=== PATIENT | male | born 1960 | race Caucasian/White ===

== ENCOUNTER 2019-09-25 13:51 | Outpatient (CLI) | payer OTHER, SELFPAY ==
--- NOTE | 2019-09-25 14:33 | ECG_ITS ---
Measurements Intervals [place] Rate: 56 P: 63 LA: 151 QRS: -9 QRSD: 102 T: 46 QT: 409 QTc: 395 Interpretive Statements SINUS BRADYCARDIA VOLTAGE CRITERIA FOR LVH DELAYED PRECORDIAL R/S TRANSITION BASELINE ARTIFACT- I, II, III, AVR, AVL, AVF, V1-V6 BORDERLINE ECG Electronically Signed On 09-25-2019 15:34:58 CDT by Demarco Persaud D.O.
[2019-09-25 15:10] LABS: Basophils Absolute Auto 0.1 K/mm3 (0.0-0.1); Basophils Percent Auto 0.5 % (0.2-1.2); Eosinophils Absolute Auto 0.9 K/mm3 (0-0.3); Eosinophils Percent Auto 7.5 % (0-4.4); Hematocrit 49.3 % (42.0-52.0); Hemoglobin 16.7 g/dL (14.0-18.0); Immature Granulocyte Absolute 0.05 K/mm3 (0.00-0.031); Immature Granulocyte Percent A 0.4 % (0-0.5); Lymphocytes Absolute Auto 1.22 K/mm3 (0.9-3.2); Lymphocytes Percent Auto 10.2 % (18.3-44.2); Mean Corpuscular HGB Conc 33.9 g/dl (32-36); Mean Corpuscular Volume 85.6 fl (80-100); Mean Platelet Volume 10.7 fl (7.4-10.4); Monocytes Absolute Auto 0.6 K/mm3 (0.1-0.6); Monocytes Percent Auto 5.4 % (2.6-8.5); Neutrophils Absolute Auto 9.1 K/mm3 (1.3-6.7); Platelet Count Result 240 k/mm3 (150-375); Red Blood Count 5.76 M/mm3 (4.6-6.20); Red Cell Distribution Width 12.7 % (11.5-14.5); White Blood Count 11.9 K/mm3 (4.5-10.0)
[2019-09-25 15:18] LABS: Albumin Level 4.3 g/dL (3.5-5.1); Estimated Glomerular Filt Rate > 60; Glucose 95 mg/dL (75-110)
[2019-09-25 15:21] LABS: Urine Cotinine NEGATIVE
[2019-09-25 17:20] LABS: Hemoglobin A1C 5.4 % (<5.7)
== END 2019-09-25 13:52 | disposition home or self-care (01) ==
LOC: ANHSURGERY 13:54
PROVIDERS: PCP Internal Medicine; Visit Provider Orthopaedic Surgery
DX: Z01.818 Encounter for other preprocedural examination (principal); M16.11 Unilateral primary osteoarthritis, right hip; I10 Essential (primary) hypertension
CPT/HCPCS: 36415; 80307; 82040; 82565; 82947; 83036; 85025; 87081; 93005

== ENCOUNTER 2019-10-17 01:13 | Outpatient (CLI) | payer OTHER, SELFPAY ==
[2019-10-17 16:42] LABS: SARS-CoV-2 RNA PCR Negative
== END 2019-10-17 01:14 | disposition home or self-care (01) ==
LOC: ANHCOVIDDT 01:13
PROVIDERS: Visit Provider Orthopaedic Surgery
DX: Z01.812 Encounter for preprocedural laboratory examination (principal); Z20.828 Contact with and (suspected) exposure to other viral communicable diseases
CPT/HCPCS: 87635; C9803; U0003

== ENCOUNTER 2019-10-20 11:08 | Inpatient (IN) | payer OTHER, SELFPAY ==
[2019-09-25 14:13] VITALS: BP 150/86; PULSE 62; RESP 20; TEMP 37; O2SAT 96; BMI 29.8
[2019-10-20] VITALS (20 sets, daily range): BP systolic 123–153; BP diastolic 63–91; PULSE 55–78; RESP 16–22; TEMP 36.2–37; O2SAT 92–98
--- NOTE | ~2019-10-20 | XR_ITS ---
EXAMINATION: XR hip RT min 2V DATE: 10/20/2019 09:45 INDICATION: Right hip arthroplasty. Postop. TECHNIQUE: 2 views of right hip were obtained. COMPARISON: Right hip radiographs 10/12/2019 FINDINGS: There is a total right hip arthroplasty in near-anatomic alignment. No fracture. There is g as in the soft tissues, consistent with recent surgery. IMPRESSION: 1. Total right hip arthroplasty in near-anatomic alignment. Reviewed, dictated and finalized at location A.
[2019-10-20] MEDS: LACTATED RINGERS 1,000 ML 30 ML IV CONT ×2 (06:40→09:35)
--- NOTE | 2019-10-20 06:44 | WPDANESEPPF ---
Anes - Initial Pre Proc Eval Procedure: Operation Date: 10/20/19 07:30 Proposed Procedures p Right Total Hip Arthroplasty - Juancarlos Cobian MD Date/Time: 10/20/19 06:44 Surgeon: Juancarlos Cobian MD Pre Op Diagnosis: Right Hip OA Patient Data Age: 59 Gender: M Height: 1.91 m Weight: 108.3 kg Last Vital Signs Temp 37.0 C 09/25/19 14:13 Pulse 62 09/25/19 14:13 Resp 20 09/25/19 14:13 BP 150/86 H 09/25/19 14:13 Pulse Ox 96 09/25/19 14:13 Allergies Allergy/AdvReac Type Severity Reaction Status Date / Time Penicillins Allergy Unknown Unknown, Verified 09/25/19 14:10 A CHILD Home Medications Medication Instructions Recorded Confirmed Type celecoxib 200 mg capsule 200 mg PO DAILY 08/26/19 10/12/19 History diltiazem HCl 60 mg 60 mg PO BID 08/26/19 10/12/19 History capsule,extended release 12 hr fexofenadine 60 mg tablet 60 mg PO Q12H 08/26/19 10/12/19 History lisinopril 40 mg tablet 40 mg PO DAILY 08/26/19 10/12/19 History zafirlukast 10 mg tablet 20 mg PO Q12H 08/26/19 10/12/19 History albuterol sulfate 2 inh INHALATION BID 09/25/19 10/12/19 History fluticasone propionate 1 spray INTRANASAL DAILY 09/25/19 10/12/19 History Patient hx anesthesia problems: none Family hx anesthesia problems: none [facility] Past Medical History Medical History (Updated 10/20/19 @ 06:45 by Tay Buitrago DO) Asthma inhaler 1-2x a day - controlled Family history of cancer Family history of heart disease Family history of hypertension Hypertension Primary osteoarthritis of left knee Surgical History Surgical History History of arthroscopy of left knee (~2009) History of arthroscopy of right knee (~2005) History of arthroscopy of right knee (~1995) Primary osteoarthritis of right hip Social History Social History Smoking status: Never smoker Alcohol intake: current Anes - Eval Final PreProcedure Day of Procedure 10/20/19 06:44 Patient weight: overweight Heart: regular rate and rhythm Lungs: clear to auscultation and normal air movement Airway: Mallampati scale class II Neurological: alert and oriented Last oral intake: >/= 8 hours ASA classification: II Emergent: no Anesthetic plan: proceed Anesthesia type and monitoring: general ETT and standard monitoring Informed Consent: The patient's anesthetic plan and its attendant risks and benefits were discussed with the patient/family/POA. Questions were solicited and answers provided to the satisfaction of the patient/family/POA.
[2019-10-20] MEDS: TRANEXAMIC ACID 1,000MG/ISO100 1,000 MG/100 ML BAG 200 MG IVPB (06:50)
--- NOTE | 2019-10-20 07:23 | WPDHPUPDATE1 ---
History and Physical Update Update Date/Time: 10/20/19 07:23 History and Physical has been reviewed, including an updated exam of the patient. There are NO changes in the patient's condition. Risks, benefits, and alternatives have been discussed and questions answered. Patient agrees to proceed with procedure.
[2019-10-20] MEDS: CLINDAMYCIN 900 MG/NS 50 ML 900 MG/50 ML PIGGYBACK 50 MG IVPB (07:27)
[2019-10-20] MEDS: ceFAZolin SODIUM 1 GM VIAL 2 GM IV PUSH (07:49)
--- NOTE | 2019-10-20 09:57 | P.OP_ITS ---
Procedure Note - Detailed Date of procedure: 10/20/19 Pre-op diagnosis: Right Hip OA Post-op diagnosis: same Procedure performed: Total hip arthroplasty. Implants: The Accolade II hip stem, 127 degree size 5 , was utilized with excellent press-fit. The 52 mm ADM acetabular component was impacted with excellent press-fit stability. The +4, 28 mm Biolox ceramic femoral head was utilized. Anesthesia: GLMA Surgeon: uJancarlos Cobian MD Estimated blood loss (mL): 500 Drains: No Complications: None Condition: stable Disposition: PACU Findings: OPERATIVE DETAILS: The patient was given preoperative antibiotics. A general anesthetic was administered. The patient was carefully placed in the lateral decubitus position on the PEG board. The shoulders and hips were carefully positioned for component and leg length positioning reference. The hip was prepped and draped in the usual sterile fashion. A longitudinal incision was created over the posterior aspect of the greater trochanter. Caref ul dissection was brought down through the deep fascia with electrocautery. A minimally invasive optimized posterior approach to the hip was performed. The short external rotators and capsule were taken down in an L-shaped capsulotomy. The tissue was tagged for later repair using number 2 high strength suture. The femoral neck was measured and taken in situ. The femoral head was removed. The acetabulum was carefully exposed. The inferior capsule was released. The labrum was resected. The acetabulum was sequentially reamed to one over the intended cup size. The cup was impacted into position with excellent press-fit. Typical anatomic landmarks, including the bony contact points as well as the inferior transverse acetabular ligament were used to confirm cup positioning with preoperative templating. Attention was turned to the femur, which was carefully exposed. The hip was reamed and then broached sequentially. Excellent press-fit was obtained with the broach. The hip was trialed. Measurements were utilized, including the lesser trochanter as well as the center of the femoral head and the tip of the trochanter, and excellent assessment of the offset and leg lengths were confirmed. The real component was impacted into position. Trialing confirmed appropriate leg length and offset with soft tissue balancing as well apparent feel of the leg, both at the knee and the heel. Soft tissues were assessed using the the iliotibial band. Reduction of the posterior capsule and external rotators were also used as a secondary assessment. The hip was copiously irrigated with pulsatile lavage antibiotic solution periodically throughout the procedure. The real components were then assembled and reduced. The hip was stable throughout typical maneuvers, including extension, external rotation to 70 degrees, the position of sleep as well as flexion to 90 degrees with internal rotation past 45 degrees. The shake test confirmed stability without impingement. Osteophytes were removed as necessary. The short external rotators and capsule were repaired back to the posterior trochanter through drill holes. The deep fascia was repaired with running number 2 Quill suture, followed by 0 Stratafix suture and 2-0 Stratafix suture in the dermis. Steri- Strips were placed on the skin, followed by a sterile silver occlusive dressing. There were no complications. Meticulous hemostasis was maintained with the AquaMantys device. The patient was brought to the recovery room in stable condition. There were no complications.
--- NOTE | 2019-10-20 10:33 | SUR.PHASEI ---
1030 SPOKE WITH SPOUSE LILIANA PER PHONE- UPDATE GIVEN.
--- NOTE | 2019-10-20 11:25 | PC.NURSE ---
This patient, Bennett Mcginnis, was admitted to Medical Room 247-. Patient/family oriented to hospital policies and general routines including ID bracelet, bed and alarms, visiting hours, pain management, procedures, bathroom and other care routines, personal items, smoking policy, room service/diet, and visiting hours. Valuables list has been completed. Information on how to activate the Rapid Response Team has been discussed. Patient/Family are encouraged to report perceived risks to care and to ask questions if they do not understand what they are told or what they should do.
[2019-10-20] MEDS: SODIUM CHLORIDE 0.9% IV 1,000 ML 125 ML IV CONT (11:41)
[2019-10-20 12:47] LABS: Hematocrit 43.3 % (42.0-52.0); Hemoglobin 14.8 g/dL (14.0-18.0)
[2019-10-20] MEDS: ONDANSETRON INJ 4 MG/2 ML VIAL IV PUSH (13:21)
[2019-10-20] MEDS: ASPIRIN 81 MG ENTERIC TABLET PO (16:28)
[2019-10-20] MEDS: DOCUSATE SODIUM 100 MG CAPSULE PO (16:28)
[2019-10-20] MEDS: FLUTICASONE PROPIONATE 0.05% NA SPR 16 GM BTL (*BKC) 1 SPRAY NASAL (16:28)
[2019-10-20] MEDS: ALBUTEROL SULFATE (*SP) AEROSOL 1 PUFF 2 PUFF INHALATION (20:52)
[2019-10-21 03:35] VITALS: BP 151/73; PULSE 64; RESP 18; TEMP 37.1; O2SAT 96
[2019-10-21 05:40] LABS: Basophils Percent Auto 0.1 % (0.2-1.2); Hematocrit 39.5 % (42.0-52.0); Hemoglobin 13.4 g/dL (14.0-18.0); Immature Granulocyte Absolute 0.14 K/mm3 (0.00-0.031); Immature Granulocyte Percent A 0.8 % (0-0.5); Lymphocytes Absolute Auto 0.54 K/mm3 (0.9-3.2); Mean Corpuscular HGB Conc 33.9 g/dl (32-36); Mean Corpuscular Hemoglobin 29.1 pg (26-34); Mean Corpuscular Volume 85.9 fl (80-100); Mean Platelet Volume 10.5 fl (7.4-10.4); Monocytes Absolute Auto 1.1 K/mm3 (0.1-0.6); Monocytes Percent Auto 6.3 % (2.6-8.5); Neutrophils Percent Auto 89.8 % (45.5-73.1); Platelet Count Result 196 k/mm3 (150-375); White Blood Count 17.8 K/mm3 (4.5-10.0)
[2019-10-21 05:52] LABS: Blood Urea Nitrogen 23 mg/dL (9-20); Calcium 8.6 mg/dL (8.4-10.2); Carbon Dioxide 26 mmol/L (22-30); Chloride 107 mmol/L (98-107); Estimated CRCL calculation 102 ml/min; Estimated Glomerular Filt Rate > 60; Glucose 126 mg/dL (75-110); Sodium 136 mmol/L (137-145)
[2019-10-21] MEDS: ZAFIRLUKAST 20 MG TABLET PO (06:40)
[2019-10-21] MEDS: ALBUTEROL SULFATE (*SP) AEROSOL 1 PUFF 2 PUFF INHALATION (08:15)
[2019-10-21 08:16] VITALS: O2SAT 95
[2019-10-21] MEDS: CELECOXIB 200 MG CAPSULE PO (08:25)
[2019-10-21] MEDS: ASPIRIN 81 MG ENTERIC TABLET PO (08:25)
[2019-10-21] MEDS: LORATADINE 10 MG TABLET PO (08:25)
[2019-10-21] MEDS: lisinopriL 20 MG TABLET 40 MG PO (08:25)
[2019-10-21] MEDS: DOCUSATE SODIUM 100 MG CAPSULE PO (08:25)
[2019-10-21] MEDS: FLUTICASONE PROPIONATE 0.05% NA SPR 16 GM BTL (*BKC) 1 SPRAY NASAL (08:25)
--- NOTE | 2019-10-21 09:01 | WPDANESPN ---
Anes - Prog Note Post-Op Date/Time: 10/21/19 09:01 Cardiovascular status: normal Respiratory status: normal Airway patency: baseline Mental status: baseline Post-Op hydration status: normal Vital Signs: Last Vital Signs Temp 37.1 C 10/21/19 03:35 Pulse 64 10/21/19 03:35 Resp 18 10/21/19 03:35 BP 151/73 H 10/21/19 03:35 Pulse Ox 95 10/21/19 08:16 I/O: Intake & Output 10/20/19 10/21/19 10/21/19 23:59 07:59 15:59 Intake Total 1301 400 240 Output Total 625 400 Balance 676 0 240 Laboratory Tests 10/21/19 05:15 10/21/19 05:15 10/20/19 10/20/19 10/21/19 06:29 12:19 05:15 WBC 17.8 H RBC 4.60 Hgb 14.8 13.4 L Hct 43.3 39.5 L MCV 85.9 MCH 29.1 MCHC 33.9 RDW 13.0 Plt Count 196 MPV 10.5 H Immature Gran % (Auto) 0.8 H Neut % (Auto) 89.8 H Lymph % (Auto) 3.0 L [place] % (Auto) 6.3 Eos % (Auto) 0.0 Baso % (Auto) 0.1 L Lymph # (Auto) 0.54 L [place] # (Auto) 1.1 H Eos # (Auto) 0.0 Baso # (Auto) 0.0 Abs Immat Gran (auto) 0.14 H Absolute Neuts (auto) 16.0 H Absolute Nucleated RBC 0.0 Nucleated RBC % 0.0 Sodium Potassium Chloride Carbon Dioxide BUN Creatinine Estim Creat Clear Calc Estimated GFR Glucose Calcium Blood Type A Negative Antibody Screen Negative 10/21/19 05:15 WBC RBC Hgb Hct MCV MCH MCHC RDW Plt Count MPV Immature Gran % (Auto) Neut % (Auto) Lymph % (Auto) [place] % (Auto) Eos % (Auto) Baso % (Auto) Lymph # (Auto) [place] # (Auto) Eos # (Auto) Baso # (Auto) Abs Immat Gran (auto) Absolute Neuts (auto) Absolute Nucleated RBC Nucleated RBC % Sodium 136 L Potassium 4.0 Chloride 107 Carbon Dioxide 26 BUN 23 H Creatinine 0.80 Estim Creat Clear Calc 102 Estimated GFR > 60 Glucose 126 H Calcium 8.6 Blood Type Antibody Screen Post-procedural complaints: none Patient Feedback: Patient satisfied with anesthetic care.
[2019-10-21 10:00] VITALS: BP 132/69; PULSE 68; RESP 18; TEMP 36.6; O2SAT 95
[2019-10-21 11:35] VITALS: BP 126/73; PULSE 60; RESP 18; TEMP 36.4; O2SAT 98
--- NOTE | 2019-11-05 16:56 | P.DS_ITS ---
DS: Admitting Diagnosis Admitting Diagnosis Admitting Diagnosis: Unilateral primary osteoarthritis, right hip DS: Discharge Diagnosis Discharge Diagnosis (1) Status post total hip replacement, right: Code(s): Z96.641 - Presence of right artificial hip joint Status: Acute DS: Summary Hospital Course Reason for hospitalization: Total hip arthroplasty. Hospital Course: Tolerated surgery well. Progressed appropriately with therapy. Status at Discharge Functional status at discharge: uses cane/walker Time Spent with Patient Time attestation: Total time spent providing and/or coordinating discharge services: Exam Const: General: no acute distress Resp: Effort & Inspection: normal respiratory effort Skin: Other: Wound healing well. Mepilex dressing intact. No hematoma or drainage. Neuro: Motor exam (neuro): 5/5 motor strength present throughout Sensory Exam: normal sensation Psych: Mental Status: mental status grossly normal Speech and movement: Normal speech and movement present Discharge Plan Discharge Attending physician on discharge: Juancarlos Cobian Consulting providers: Wade Caceres V. Discharging Clinician: Juancarlos Cobian Patient Disposition: Home, Self-Care Activity: may shower Diet: as tolerated Discharge Instructions: See instruction sheet. Patient Instructions: Antibiotic Form, Aspirin (By mouth), Pain Management (DC), Precautions after Total Joint Replacement Surgery (DC), Fall Prevention (DC), Total Hip Replacement (DC) Follow-up/Referrals: Juancarlos Cobian MD [Physician] - Discharge Medications: New aspirin 81 mg Tablet,Delayed Release (Dr/Ec) 81 mg PO BID 14 Days Qty: 28 RF: 0 oxycodone-acetaminophen 5-325 mg tablet 1 - 2 tablet PO Q4-6H MDD 6 tablets PRN (Reason: pain) Qty: 30 RF: 0 Continued diltiazem HCl 60 mg capsule,extended release 12 hr 60 mg PO BID RF: 0 fexofenadine [[facility]cedes Allergy] 60 mg tablet 60 mg PO Q12H RF: 0 lisinopril 40 mg tablet 40 mg PO DAILY RF: 0 zafirlukast 10 mg tablet 20 mg PO Q12H RF: 0 celecoxib [Celebrex] 200 mg capsule 200 mg PO DAILY RF: 0 fluticasone propionate 50 mcg/actuation [place],Suspension 1 spray INTRANASAL DAILY RF: 0 albuterol sulfate 90 mcg/actuation Aerosol Powdr Breath Activated 2 inh INHALATION BID RF: 0 Date of admission: 10/20/19 11:08 Primary Care Provider: ALFJOSIANE Admitting Provider: Juancarlos Cobian Discharge Date/Time: 10/21/19 14:49 Attending physician on admission: Juancarlos Cobian
== END 2019-10-21 14:49 | disposition home or self-care (01) | DRG 470 ==
LOC: ANH2MED 13:08 → ANHSURGERY 10-23 15:45
PROVIDERS: Admitting Provider Orthopaedic Surgery; PCP Internal Medicine; Visit Provider Orthopaedic Surgery
PROC: 0SR904A Replacement of Right Hip Joint with Ceramic on Polyethylene Synthetic Substitute, Uncemented, Open Approach (ICD-10-PCS; CPT 27130; principal; 2019-10-20 07:30)
DX: M16.11 Unilateral primary osteoarthritis, right hip (principal); J45.909 Unspecified asthma, uncomplicated; I10 Essential (primary) hypertension; M17.12 Unilateral primary osteoarthritis, left knee
CPT/HCPCS: 36415; 73502; 80048; 85014; 85018; 85025; 86850; 86900; 86901; 94640; 97110; 97116; 97161; 97165; 97530; A9270; C1776; J0131; J0171; J0330; J0690; J1100; J1170; J1885; J2250; J2270; J2405; J2704; J2795; J3010; J7030; J7120

== ENCOUNTER 2020-07-11 14:19 | Outpatient (CLI) | payer OTHER, SELFPAY ==
--- NOTE | 2020-07-11 15:19 | ECG_ITS ---
Measurements Intervals [place] Rate: 58 P: 64 AR: 155 QRS: -1 QRSD: 104 T: 59 QT: 448 QTc: 444 Interpretive Statements SINUS BRADYCARDIA VENTRICULAR PREMATURE COMPLEXES INCOMPLETE RIGHT BUNDLE BRANCH BLOCK MINIMAL Q WAVES- HIGH LATERAL LEADS BORDERLINE T WAVE ABNORMALITY- ANTEROLATERAL LEADS BASELINE ARTIFACT- II, III, AVF, V4-V6 BORDERLINE ECG Electronically Signed On 07-11-2020 16:27:48 TAPE WEAVER by Demarco Persaud D.O.
[2020-07-11 15:21] LABS: Hematocrit 46.7 % (42.0-52.0); Hemoglobin 16.2 g/dL (14.0-18.0)
[2020-07-11 15:47] LABS: Estimated Glomerular Filt Rate > 60; Glucose 82 mg/dL (75-110)
[2020-07-11 15:57] LABS: Hemoglobin A1C 5.1 % (<5.7)
[2020-07-11 16:23] LABS: Urine Cotinine NEGATIVE
== END 2020-07-11 14:20 | disposition home or self-care (01) ==
PROVIDERS: PCP Internal Medicine; Visit Provider Orthopaedic Surgery
DX: Z01.818 Encounter for other preprocedural examination (principal); M17.12 Unilateral primary osteoarthritis, left knee; I10 Essential (primary) hypertension; J45.909 Unspecified asthma, uncomplicated
CPT/HCPCS: 80307; 82040; 82565; 82947; 83036; 85014; 85018; 93005

== ENCOUNTER 2020-08-01 09:22 | Outpatient (CLI) | payer OTHER, SELFPAY ==
[2020-08-01 10:14] LABS: Basophils Percent Auto 0.5 % (0.2-1.2); Eosinophils Absolute Auto 0.4 K/mm3 (0-0.3); Hematocrit 47.6 % (42.0-52.0); Hemoglobin 16.4 g/dL (14.0-18.0); Immature Granulocyte Absolute 0.03 K/mm3 (0.00-0.031); Immature Granulocyte Percent A 0.5 % (0-0.5); Lymphocytes Absolute Auto 0.93 K/mm3 (0.9-3.2); Lymphocytes Percent Auto 16.3 % (18.3-44.2); Mean Corpuscular HGB Conc 34.5 g/dl (32-36); Mean Corpuscular Hemoglobin 29.9 pg (26-34); Mean Corpuscular Volume 86.9 fl (80-100); Mean Platelet Volume 9.9 fl (7.4-10.4); Monocytes Absolute Auto 0.4 K/mm3 (0.1-0.6); Neutrophils Absolute Auto 3.9 K/mm3 (1.3-6.7); Neutrophils Percent Auto 68.7 % (45.5-73.1); Platelet Count Result 198 k/mm3 (150-375); Red Blood Count 5.48 M/mm3 (4.6-6.20); Red Cell Distribution Width 12.5 % (11.5-14.5); White Blood Count 5.7 K/mm3 (4.5-10.0)
== END 2020-08-01 09:23 | disposition home or self-care (01) ==
PROVIDERS: PCP Internal Medicine; Visit Provider Orthopaedic Surgery
DX: Z01.818 Encounter for other preprocedural examination (principal); M17.12 Unilateral primary osteoarthritis, left knee
CPT/HCPCS: 36415; 85025; 87081

== ENCOUNTER → 2020-08-13 00:47 | Outpatient (CLI) | payer OTHER, SELFPAY ==
[2020-08-13 18:53] LABS: SARS-CoV-2 RNA PCR Negative
== END ==
PROVIDERS: PCP Internal Medicine; Visit Provider Orthopaedic Surgery
DX: Z01.812 Encounter for preprocedural laboratory examination (principal); Z20.822 Contact with and (suspected) exposure to COVID-19
CPT/HCPCS: C9803; U0003; U0005

== ENCOUNTER 2020-08-16 01:03 | Day surgery (SDC) | payer OTHER, SELFPAY ==
[2020-08-01 09:35] VITALS: BMI 29.3
[2020-08-01 10:06] VITALS: BP 149/85; PULSE 52; RESP 16; TEMP 37.1; O2SAT 98
[2020-08-16] VITALS (13 sets, daily range): BP systolic 101–135; BP diastolic 65–83; PULSE 45–71; RESP 12–18; TEMP 36.3–37.2; O2SAT 94–99
--- NOTE | ~2020-08-16 | XR_ITS ---
EXAMINATION: XR knee LT 2V EXAM DATE: 08/16/2020 12:59 INDICATION: Left knee total arthroplasty. TECHNIQUE: Portable frontal, crosstable lateral projections left knee obtained immediately following arthroplasty. Procedure performed by Juancarlos Cobian MD. FINDINGS: Patient is status post total knee arthroplasty. The orthopedic hardware is in expected po sition. There is small amount of subcutaneous gas, gas and fluid within the knee joint space. Overl aylin soft tissue swelling. Correlate with procedure note. Suprapatellar enthesopathy. IMPRESSION: Status post total left knee arthroplasty. Reviewed, dictated and finalized at location A.
[2020-08-16] MEDS: LACTATED RINGERS 1,000 ML 30 ML IV CONT ×2 (09:19→12:42)
[2020-08-16] MEDS: ACETAMINOPHEN 500 MG TABLET 1000 MG PO (09:25)
[2020-08-16] MEDS: TRANEXAMIC ACID 1,000MG/ISO100 1,000 MG/100 ML BAG 200 MG IVPB (09:26)
--- NOTE | 2020-08-16 09:27 | WPDHPUPDATE1 ---
History and Physical Update Update Date/Time: 08/16/20 09:27 History and Physical has been reviewed, including an updated exam of the patient. There are NO changes in the patient's condition. Risks, benefits, and alternatives have been discussed and questions answered. Patient agrees to proceed with procedure.
--- NOTE | 2020-08-16 09:28 | WPDHPUPDATE1 ---
History and Physical Update Update Date/Time: 08/16/20 09:28 History and Physical has been reviewed, including an updated exam of the patient. There are NO changes in the patient's condition. Risks, benefits, and alternatives have been discussed and questions answered. Patient agrees to proceed with procedure.
--- NOTE | 2020-08-16 09:47 | WPDANESEPPF ---
Anes - Initial Pre Proc Eval Procedure: Operation Date: 08/16/20 10:30 Proposed Procedures p Left Total Knee Arthroplasty - Juancarlos Cobian MD Date/Time: 08/16/20 09:47 Surgeon: Juancarlos Cobian MD Pre Op Diagnosis: primary OA left knee Patient Data Age: 60 Gender: M Height: 6 ft 4 in Weight: 108 kg Last Vital Signs Temp 37.2 C 08/16/20 09:32 Pulse 57 L 08/16/20 09:32 Resp 16 08/16/20 09:32 BP 130/75 08/16/20 09:32 Pulse Ox 98 08/16/20 09:32 Allergies Allergy/AdvReac Type Severity Reaction Status Date / Time Penicillins Allergy Unknown Unknown, Verified 08/16/20 08:57 A CHILD Home Medications Medication Instructions Recorded Confirmed Type celecoxib 200 mg capsule 200 mg PO BID 08/26/19 08/16/20 History fexofenadine 60 mg tablet 180 mg PO DAILY 08/26/19 08/16/20 History lisinopril 40 mg tablet 40 mg PO DAILY 08/26/19 08/16/20 History zafirlukast 10 mg tablet 20 mg PO Q12H 08/26/19 08/16/20 History albuterol sulfate 2 inh INHALATION PRN PRN 09/25/19 08/16/20 History fluticasone propionate 1 spray INTRANASAL DAILY 09/25/19 08/16/20 History diltiazem HCl 240 mg PO BID 08/01/20 08/16/20 History fluticasone propionate [Flovent 2 inh INHALATION BID 08/01/20 08/16/20 History HFA] Patient hx anesthesia problems: none Family hx anesthesia problems: none PMFSH Past Medical History Medical History Asthma inhaler 1-2x a day - controlled Family history of cancer Family history of heart disease Family history of hypertension Hypertension Primary osteoarthritis of left knee Surgical History Surgical History History of arthroscopy of left knee (~2009) History of arthroscopy of right knee (~2005) History of arthroscopy of right knee (~1995) Primary osteoarthritis of right hip Status post total hip replacement, right Family History Family History Other Family history of cardiovascular disease Hypertension Social History Social History Smoking status: Never smoker Additional smoking assessment comments: DENIES ANY FORM OF TOBACCO USE Alcohol intake: current Drinks per week: 1 Substance use: never Substance use type: does not use Living arrangements: with family Gender identity (if verbalized by the patient): Male Spiritual care concerns: No Anes - Eval Final PreProcedure Day of Procedure 08/16/20 09:47 Patient weight: overweight Heart: regular rate and rhythm Lungs: clear to auscultation Airway: Mallampati scale class II Neurological: alert and oriented Last oral intake: >/= 8 hours ASA classification: II Emergent: no Anesthetic plan: proceed Anesthesia type and monitoring: general LMA and standard monitoring Informed Consent: The patient's anesthetic plan and its attendant risks and benefits were discussed with the patient/family/POA. Questions were solicited and answers provided to the satisfaction of the patient/family/POA.
--- NOTE | 2020-08-16 10:01 | WPDANESPNB ---
Anes - Peripheral Nerve Block Date/Time: 08/16/20 10:01 I have discussed with the patient/family/POA the placement of a peripheral nerve block for post-operative pain management, including associated risks, benefits, complications, and side effects. Alternative methods of post-operative analgesia were detailed. Questions were solicited and answers provided to the satisfaction of the patient/family/POA. Time-Out: A pre-procedural Time-Out was completed immediately before starting the procedure and confirmed: Patient Identification, Site, Procedure, Patient Position and the Availability of Requisite Equipment. Clinical Indications: Acute post-operative pain management requested by the operative surgeon. Nerve Block Insertion Note Anes-nerve block: adductor canal left Patient position: supine Skin prep: chlorhexidine Needle: 22 gauge, stimulating, insulated echogenic needle. Needle length: 80 mm Technique: ultrasound Injectate: bupivacaine 0.5% with epi 5 mcg/ml (30ml no epi) Observations: tolerated well Complications: none Procedure start time:: 947 Procedure end time:: 954
[2020-08-16] MEDS: ceFAZolin 2 GM/D5W 50 ML 2 GM/50 ML BAG IVPB (10:03)
[2020-08-16] MEDS: fentaNYL CITRATE INJ (*CRX) 100 MCG/2 ML VIAL 25 MCG IV PUSH ×8 (13:12→14:00)
--- NOTE | 2020-08-16 13:27 | PM.PROC ---
Procedure Note - Detailed Date of procedure: 08/16/20 Pre-op diagnosis: primary OA left knee Post-op diagnosis: same Procedure performed: Total knee arthroplasty, left Description of procedure: for bone quality was excellent. He had a significant varus thrust which required a large medial release. Flexion gap was a bit tight and the PS knee was selected. Gap balance was then ideal. Implants: [place] [employer] size 6 press-fit femur, size 7 Tritanium press fit tibia, 13mm PS X3, polyethylene insert, 38 mm asymmetric Tritanium metal backed patellar component. Anesthesia: GETA and regional (subsartorial nerve block) Surgeon: Juancarlos Cobian MD Ingot Header: Coty Hsieh PA-C Estimated blood loss (mL): 250 Drains: No Complications: None Condition: stable Disposition: PACU Findings: Physician junior administrative assistant, Coty Hsieh PA-C, required for surgery; including patient positioning, draping, tissue retraction, maintaining instrument position, wound closure, and dressing placement. OPERATIVE DETAILS: The patient was given a nerve block preoperatively, and then brought to the operating room. A general anesthetic was administered. The leg was prepped and draped in the usual sterile fashion. The limb was elevated and the tourniquet inflated to 300 mmHg during initial exposure. A longitudinal incision was created along the medial border of the patella and patellar tendon, and trivector approach to the knee was performed. A moderate medial release was taken. The knee was then flexed. The osteophytes were carefully removed. The intramedullary guide was placed in the femoral canal. The distal femoral resection was then taken with the oscillating saw. The collateral ligaments were carefully protected. The tibia was carefully exposed. The jig was applied, and the proximal tibia was resected at 3 degrees according to preoperative plan. The knee was balanced in extension. Appropriate releases were taken where needed. The anterior cruciate ligament and meniscal remnants were removed. The patella was measured. Patellar resection was carried out with the oscillating saw. The lug holes drilled. The femur was sized and rotation assessed using a combination of gap balancing, posterior referencing, and the AP axis. The 4 in 1 cutting block was used to finish the femoral cuts after equal gaps were assured. The box cut was taken and PCL excised. The lug holes were drilled. The osteophytes were carefully removed from the back of the knee. The knee was copiously irrigated periodically throughout the procedure. The meniscal remnants were removed. The spacer block was used to confirm equal flexion and extension gaps. Further releases were performed as needed. The tibia was sized and broached. The bony surfaces were prepared for cementing with pulsatile lavage. The real tibial component was impacted into position followed by press fitting the femoral component. The patella component was press-fit. Patellar tracking was carefully assessed. No additional releases were required. The wound was closed with #1 Vycril suture, #2 Quill suture, 0-Quill suture, and 2-0 Quill suture followed by Steri-Strips. A sterile bulky dressing was applied. Meticulous hemostasis was maintained throughout the procedure. The Baboomtis device was utilized. There were no complications. The patient was extubated and brought to the recovery room in stable condition after the application of sterile dressing with Primitivo bandage.
--- NOTE | 2020-08-16 14:20 | ADMGEN ---
This patient, Bennett Mcginnis, was admitted to Medical Room 250-01. Patient/family oriented to hospital policies and general routines including ID bracelet, bed and alarms, visiting hours, pain management, procedures, bathroom and other care routines, personal items, smoking policy, room service/diet, and visiting hours. Information on how to activate the Rapid Response Team has been discussed. Patient/Family are encouraged to report perceived risks to care and to ask questions if they do not understand what they are told or what they should do.
[2020-08-16] MEDS: SODIUM CHLORIDE 0.9% IV 1,000 ML 125 ML IV CONT (14:36)
[2020-08-16] MEDS: oxyCODONE HCL (*CRX) 5 MG TAB IR PO ×2 (14:37→21:59)
[2020-08-16] MEDS: ONDANSETRON INJ 4 MG/2 ML VIAL IV PUSH (15:19)
[2020-08-16] MEDS: DOCUSATE SODIUM 100 MG CAPSULE PO (16:19)
[2020-08-16] MEDS: CELECOXIB 200 MG CAPSULE PO (16:19)
[2020-08-16] MEDS: ASPIRIN 81 MG ENTERIC TABLET PO (16:19)
[2020-08-16] MEDS: FLUTICASONE PROP 220 MCG (*SP) 12 GM INHALER 2 PUFF INHALATION (21:54)
[2020-08-16] MEDS: SENNOSIDES 8.6 MG TABLET 17.2 MG PO (21:55)
[2020-08-16] MEDS: ZAFIRLUKAST 20 MG TABLET PO (21:55)
[2020-08-17] VITALS: BP 140/77; PULSE 65; RESP 16; TEMP 36.6; O2SAT 95
[2020-08-17] MEDS: oxyCODONE HCL (*CRX) 5 MG TAB IR PO ×2 (01:39→08:33)
[2020-08-17 04:00] VITALS: BP 125/69; PULSE 66; RESP 16; TEMP 36.7; O2SAT 95
[2020-08-17 06:04] LABS: Basophils Percent Auto 0.2 % (0.2-1.2); Hematocrit 41.9 % (42.0-52.0); Hemoglobin 14.2 g/dL (14.0-18.0); Immature Granulocyte Absolute 0.08 K/mm3 (0.00-0.031); Immature Granulocyte Percent A 0.4 % (0-0.5); Lymphocytes Absolute Auto 0.57 K/mm3 (0.9-3.2); Lymphocytes Percent Auto 3.2 % (18.3-44.2); Mean Corpuscular HGB Conc 33.9 g/dl (32-36); Mean Corpuscular Hemoglobin 30.3 pg (26-34); Mean Corpuscular Volume 89.3 fl (80-100); Mean Platelet Volume 10.6 fl (7.4-10.4); Monocytes Percent Auto 5.4 % (2.6-8.5); Neutrophils Absolute Auto 16.2 K/mm3 (1.3-6.7); Neutrophils Percent Auto 90.8 % (45.5-73.1); Platelet Count Result 211 k/mm3 (150-375); Red Blood Count 4.69 M/mm3 (4.6-6.20); Red Cell Distribution Width 12.9 % (11.5-14.5); White Blood Count 17.8 K/mm3 (4.5-10.0)
[2020-08-17 06:11] LABS: Anion Gap 4 mmol/L (8-16); Blood Urea Nitrogen 27 mg/dL (9-20); Calcium 8.5 mg/dL (8.4-10.2); Carbon Dioxide 26 mmol/L (22-30); Chloride 106 mmol/L (98-107); Estimated CRCL calculation 93 ml/min; Estimated Glomerular Filt Rate > 60; Glucose 114 mg/dL (75-110); Sodium 136 mmol/L (137-145)
--- NOTE | 2020-08-17 07:14 | WPDANESPN ---
Anes - Prog Note Post-Op Date/Time: 08/17/20 07:14 Cardiovascular status: normal Respiratory status: normal Airway patency: baseline Mental status: baseline Post-Op hydration status: normal Vital Signs: Last Vital Signs Temp 36.7 C 08/17/20 04:00 Pulse 66 08/17/20 04:00 Resp 16 08/17/20 04:00 BP 125/69 08/17/20 04:00 Pulse Ox 95 08/17/20 04:00 Pain Score (VAS): 0 I/O: Intake & Output 08/16/20 08/16/20 08/17/20 15:59 23:59 07:59 Intake Total 550 1920 550 Output Total 150 400 Balance 550 1770 150 Laboratory Tests 08/17/20 05:16 08/17/20 05:16 08/16/20 08/17/20 08/17/20 09:18 05:16 05:16 WBC 17.8 H RBC 4.69 Hgb 14.2 Hct 41.9 L MCV 89.3 MCH 30.3 MCHC 33.9 RDW 12.9 Plt Count 211 MPV 10.6 H Immature Gran % (Auto) 0.4 Neut % (Auto) 90.8 H Lymph % (Auto) 3.2 L [place] % (Auto) 5.4 Eos % (Auto) 0.0 Baso % (Auto) 0.2 Lymph # (Auto) 0.57 L [place] # (Auto) 1.0 H Eos # (Auto) 0.0 Baso # (Auto) 0.0 Abs Immat Gran (auto) 0.08 H Absolute Neuts (auto) 16.2 H Absolute Nucleated RBC 0.0 Nucleated RBC % 0.0 Sodium 136 L Potassium 4.0 Chloride 106 Carbon Dioxide 26 Anion Gap 4 L BUN 27 H Creatinine 0.90 Estim Creat Clear Calc 93 Estimated GFR > 60 Glucose 114 H Calcium 8.5 Blood Type A Negative Antibody Screen Negative Post-procedural complaints: none Patient Feedback: Patient satisfied with anesthetic care.
[2020-08-17 08:30] VITALS: BP 121/75; PULSE 64
[2020-08-17] MEDS: ASPIRIN 81 MG ENTERIC TABLET PO (08:34)
[2020-08-17] MEDS: LORATADINE 10 MG TABLET PO (08:35)
[2020-08-17] MEDS: ZAFIRLUKAST 20 MG TABLET PO (08:35)
[2020-08-17] MEDS: CELECOXIB 200 MG CAPSULE PO (08:35)
[2020-08-17] MEDS: lisinopriL 20 MG TABLET 40 MG PO (08:35)
[2020-08-17] MEDS: DOCUSATE SODIUM 100 MG CAPSULE PO (08:35)
[2020-08-17] MEDS: FLUTICASONE PROP 220 MCG (*SP) 12 GM INHALER 2 PUFF INHALATION (08:36)
[2020-08-17] MEDS: FLUTICASONE PROPIONATE 0.05% NA SPR 16 GM BTL (*BKC) 1 SPRAY NASAL (08:37)
[2020-08-17 10:00] VITALS: BP 108/63; PULSE 57; RESP 18; TEMP 36.7; O2SAT 94
--- NOTE | 2020-08-17 12:20 | PM.DS ---
DS: Admitting Diagnosis Admitting Diagnosis Admitting Diagnosis: OA knee Left DS: Discharge Diagnosis Discharge Diagnosis (1) Status post total left knee replacement: Code(s): Z96.652 - Presence of left artificial knee joint Status: Acute Assessment and Plan: POD# 1 Left Total knee arthroplasty Patient progressing well from Total knee arthroplasty on the right. Pain controlled with oral pain medications. No complications. Did well with initial PT/OT. Follow up in office. See blue instruction sheet for details. Take Aspirin 81 mg BID for 2 weeks for DVT prophylaxis. DS: Summary Hospital Course Reason for hospitalization: Total knee arthroplasty Hospital Course: Patient tolerated procedure well. Has had initial PT/OT. Status at Discharge Functional status at discharge: uses cane/walker Overall status at discharge: patient is progressing back to baseline Time Spent with Patient Time attestation: Total time spent providing and/or coordinating discharge services: Exam Narrative: Exam Narrative: Tall active Male. Resting comfortably in chair. Wearing compression socks bilaterally. Dressing intact with no drainage. Moderate swelling. No ecchymosis. No erythema. No hematoma. Range of motion limited due to pain. Calf nontender. Neurologic status intact. No varicosities. Distal pulses palpable. DS: Data Data Completed and Pending Labs on day of discharge: Labs from last 24 hours 08/17/20 08/17/20 05:16 05:16 WBC 17.8 H RBC 4.69 Hgb 14.2 Hct 41.9 L MCV 89.3 MCH 30.3 MCHC 33.9 RDW 12.9 Plt Count 211 MPV 10.6 H Immature Gran % (Auto) 0.4 Neut % (Auto) 90.8 H Lymph % (Auto) 3.2 L [place] % (Auto) 5.4 Eos % (Auto) 0.0 Baso % (Auto) 0.2 Lymph # (Auto) 0.57 L [place] # (Auto) 1.0 H Eos # (Auto) 0.0 Baso # (Auto) 0.0 Abs Immat Gran (auto) 0.08 H Absolute Neuts (auto) 16.2 H Absolute Nucleated RBC 0.0 Nucleated RBC % 0.0 Sodium 136 L Potassium 4.0 Chloride 106 Carbon Dioxide 26 Anion Gap 4 L BUN 27 H Creatinine 0.90 Estim Creat Clear Calc 93 Estimated GFR > 60 Glucose 114 H Calcium 8.5 Discharge Plan Discharge Patient Disposition: Home, Self-Care Discharge Instructions: See Marvin instruction sheet Patient Instructions: Precautions after Total Joint Replacement Surgery (GEN), Knee Replacement (GEN) Follow-up/Referrals: Coty Hsieh PA [Physician Shelter Supervisor] - Discharge Medications: New aspirin 81 mg tablet,delayed release (DR/EC) 81 mg PO BID 14 Days Qty: 28 RF: 0 oxycodone-acetaminophen 2.5-325 mg tablet 1 - 2 tablet PO Q4-6H PRN (Reason: pain) Qty: 40 RF: 0 Continued fexofenadine [[facility] Allergy] 60 mg tablet 180 mg PO DAILY RF: 0 lisinopril 40 mg tablet 40 mg PO DAILY RF: 0 zafirlukast 10 mg tablet 20 mg PO Q12H RF: 0 celecoxib [Celebrex] 200 mg capsule 200 mg PO BID RF: 0 Flovent HFA 220 mcg/actuation HFA aerosol inhaler 2 inh INHALATION BID RF: 0 diltiazem HCl 240 mg capsule,extended release 24hr 240 mg PO BID RF: 0 fluticasone propionate 50 mcg/actuation [place],Suspension 1 spray INTRANASAL DAILY RF: 0 albuterol sulfate 90 mcg/actuation Aerosol Powdr Breath Activated 2 inh INHALATION PRN PRN (Reason: Shortness Of Breath) RF: 0
--- NOTE | 2020-08-17 13:38 | PC.NURSE ---
On 08/17/20, the student, [Hiwot Zamorano ], provided care and completed [facility] documentation on this patient. I have reviewed the student's documentation and agree with the findings.
== END 2020-08-17 12:50 | disposition home or self-care (01) ==
LOC: ANHSURGERY 08:48 → ANH2MED 14:10
PROVIDERS: PCP Internal Medicine; Visit Provider Orthopaedic Surgery
PROC: (CPT 27447; principal; 2020-08-16 10:30)
DX: M17.12 Unilateral primary osteoarthritis, left knee (principal); G89.18 Other acute postprocedural pain; J45.909 Unspecified asthma, uncomplicated; I10 Essential (primary) hypertension; Z79.51 Long term (current) use of inhaled steroids
CPT/HCPCS: 27447; 64447; 36415; 73560; 80048; 85025; 86850; 86900; 86901; 97110; 97116; 97161; 97165; 97535; A9270; C1713; C1776; J0131; J0171; J0690; J1100; J1170; J1885; J2250; J2270; J2370; J2405; J2704; J2795; J3010; J7030; J7120